=== PATIENT | female | born 1985 | race African-American/Black ===

== ENCOUNTER 2025-09-06 11:35 | Observation (INO) | payer BC, SELFPAY ==
[2025-09-06] MEDS ORDERED: diphenhydrAMINE 25 MG CAP PO PRN (12:13)
[2025-09-06] MEDS ORDERED: Simethicone Chewable 80 MG TAB PO PRN (12:13)
[2025-09-06] MEDS ORDERED: Bisacodyl 10 MG SUPP PR PRN (12:13)
[2025-09-06 12:58] LABS: Platelet Count 25.0 10x3/uL (150-450)
[2025-09-06 13:06] LABS: ALT (SGPT) 13 U/L (Less than 34); AST (SGOT) 18 U/L (11-34); Albumin 3.4 g/dL (3.1-4.5); Alkaline Phosphatase 53 U/L (40-110); Anion Gap 9 mmol/L (10-20); BUN (Urea Nitrogen) 10 mg/dL (7.0-18.7); Bilirubin, Total 0.3 mg/dL (0.3-1.2); Calc. Creatinine Clearance 131 mL/min (70-130); Calcium 8.9 mg/dL (7.8-10.44); Carbon Dioxide 23 mmol/L (22-29); Chloride 110 mmol/L (98-107); D-Dimer Test 0.59 mcg/mL (0.19-0.50); Fibrinogen 378.0 mg/dL (220-504); Globulin 3.0 g/dL (2.4-3.5); Glucose 82 mg/dL (70-105); INR-International Normal Ratio 1.0; PTT 23.1 sec (22.0-33.0); Potassium 4.0 mmol/L (3.5-5.1); Prothrombin Time 11.0 sec (9.5-12.1); Sodium 138 mmol/L (136-145)
[2025-09-06 13:08] LABS: #Basophils 0.07 10x3/uL (0.0-0.2); #Eosinophils 0.14 10x3/uL (0.0-0.5); #Monocytes 0.61 10x3/uL (0.0-1.1); #Neutrophils 5.24 10x3/uL (1.5-8.4); %Basophils 0.9 % (0.0-2.0); %Eosinophils 1.9 % (0.0-6.0); %Lymphocytes 16.3 % (18.0-47.0); %Monocytes 8.3 % (0.0-10.0); %Neutrophils 71.1 % (40.0-75.0); Hematocrit 18.6 % (34.9-44.5); Hemoglobin 5.7 g/dL (12.0-15.5); Mean Corpuscular Hemoglobin 19.0 pg (27.0-33.0); Mean Corpuscular Volume 62.0 fL (81.6-98.3); Platelet Count 24 10x3/uL (150-450); Red Blood Cell (RBC) Count 3.00 10x6/uL (3.90-5.03); White Blood Cell (WBC) Count 7.37 10x3/uL (3.5-10.5)
[2025-09-06] MEDS: Tranexamic Acid 1,000 MG/10 ML VIAL IVP SCH (13:23)
[2025-09-06 13:26] LABS: Ferritin 106.09 ng/mL (10-291)
[2025-09-06] MEDS: Pantoprazole 40 MG DR.TAB PO SCH (14:20)
[2025-09-06] MEDS: Dexamethasone 4 MG TAB PO SCH (14:23)
[2025-09-06 14:30] LABS: Anisocytosis MARKED = >30 cells (100X) (0-5/hpf); Microcytosis MODERATE=15-30 cells (100X) (0-5/hpf); Poikilocytosis MODERATE=16-30 cells (100X) (0-5/hpf); Reflex for Review?? YES
[2025-09-06 14:31] LABS: Ovalocytes SLIGHT = 2-5 cells (100X) (0-1/hpf); Polychromasia MODERATE = 3-4 cells (100X) (0-2/hpf); Target Cells SLIGHT = 2-5 cells (100X) (0-1/hpf)
[2025-09-06 14:32] LABS: Platelet Adequacy Comment Appears Decreased
[2025-09-06] MEDS ORDERED: Ventolin HFA Inhaler 60 PUFF INHALER INH PRN (15:26)
[2025-09-06 15:42] LABS: HIV (1/2) Antibody/Antigen Non-Reactive (NonReactive); HIV 1/2 INDEX 0.11 S/CO (<1.00)
[2025-09-06] MEDS: Ferrous Sulfate 325 MG TAB PO SCH (18:28)
[2025-09-06] MEDS: Acetaminophen 325 MG TAB PO PRN (20:27)
[2025-09-06 22:53] LABS: Hep C IgG Ab NONREACTIVE S/CO (NonReactive); Hep C Index 0.11 S/CO (0-0.79)
[2025-09-07 04:50] LABS: Anion Gap 10 mmol/L (10-20); BUN (Urea Nitrogen) 12 mg/dL (7.0-18.7); Calc. Creatinine Clearance 145 mL/min (70-130); Calcium 9.9 mg/dL (7.8-10.44); Carbon Dioxide 19 mmol/L (22-29); Chloride 112 mmol/L (98-107); Glucose 131 mg/dL (70-105); Iron 245 ug/dL (50-170); Iron Binding Capacity, Total 411 mcg/dL (265-497); Potassium 4.2 mmol/L (3.5-5.1); Sodium 137 mmol/L (136-145)
[2025-09-07 05:39] LABS: Platelet Count 60 10x3/uL (150-450)
[2025-09-07 05:40] LABS: Hematocrit 31.2 % (34.9-44.5); Hemoglobin 9.9 g/dL (12.0-15.5); Mean Corpuscular Hemoglobin 22.8 pg (27.0-33.0); Mean Corpuscular Volume 71.7 fL (81.6-98.3); Red Blood Cell (RBC) Count 4.35 10x6/uL (3.90-5.03); White Blood Cell (WBC) Count 14.55 10x3/uL (3.5-10.5)
[2025-09-07 05:41] LABS: Anisocytosis SLIGHT = 6-15 cells (100X) (0-5/hpf); MDiff Complete? YES; Microcytosis SLIGHT = 6-15 cells (100X) (0-5/hpf); Nucleated RBC (Manual Ct) 1 % (0); Ovalocytes SLIGHT = 2-5 cells (100X) (0-1/hpf); Platelet Adequacy Comment Appears Decreased; Poikilocytosis SLIGHT = 6-15 cells (100X) (0-5/hpf)
[2025-09-07] MEDS: Ondansetron PF 4 MG/2 ML Vial IVP PRN (07:35)
[2025-09-07 07:37] VITALS: BP 163/79
[2025-09-07] MEDS ORDERED: HYDROcodone/Acetaminophen 5/325 mg Tablet PO PRN (07:42)
[2025-09-07] MEDS: HYDROcodone/Acetaminophen 5/325 mg Tablet PO PRN (07:54)
[2025-09-07] MEDS ORDERED: hydrALAZINE 20 MG/ML VIAL SLOW IVP PRN (10:02)
[2025-09-07] MEDS: Ketorolac Tromethamine 30 MG (1 mL) VIAL IVP SCH (10:08)
[2025-09-07 10:59] VITALS: TEMP 98.6
[2025-09-07] MEDS ORDERED: hydrALAZINE 20 MG/ML VIAL SLOW IVP SCH (11:00)
[2025-09-07] MEDS: Pantoprazole 40 MG DR.TAB PO SCH (12:12)
[2025-09-07] MEDS: Cyclobenzaprine 10 MG TAB PO SCH (12:12)
[2025-09-07] MEDS: Dexamethasone 4 MG TAB PO SCH (12:13)
[2025-09-07] MEDS: Furosemide 20 MG (2 mL) VIAL SLOW IVP SCH (12:17)
== END 2025-09-07 15:30 | disposition home or self-care (01) ==
LOC: CSHPED 11:46
PROVIDERS: ADMIT Student in an Organized Health Care Education/Training Program; ATTEND Hospitalist
DX: D64.9 Anemia, unspecified (principal); D69.59 Other secondary thrombocytopenia; I10 Essential (primary) hypertension; N92.0 Excessive and frequent menstruation with regular cycle; Z91.041 Radiographic dye allergy status; Z88.5 Allergy status to narcotic agent; Z91.040 Latex allergy status
CPT/HCPCS: 36415; 36430; 80048; 80053; 82728; 83540; 83550; 84443; 85025; 85049; 85300; 85362; 85384; 85610; 85730; 86803; 86850; 86900; 86901; 87389; 96372; 96374; 96375; 96376; G0378; J1410; J1885; J2405; J2550; J3010; J7120; J8540; P9016; P9035